=== PATIENT | female | born 1935 | race Caucasian/White ===

== ENCOUNTER 2018-08-07 16:45 | Inpatient (IN) | payer MEDICARE, BC, OTHER ==
[2018-08-07] MEDS ORDERED: Magnesium Sulfate 2 GM IV* 2 GM/50 ML BAG IVPB ONE (16:54)
[2018-08-07] MEDS ORDERED: Albuterol 0.5% CONC NEB.SOL* 5 MG/ML 20 ml BOT INH ONE (16:54)
[2018-08-07] MEDS ORDERED: methylPREDNISolone 125 MG* 2 ML VIAL IV ONE (16:54)
--- NOTE | 2018-08-07 17:04 | ED ---
Shortness of Breath - HPI Summary HPI Summary: A 82 y/o female brought in by ambulance presents to the ED c/o difficulty breathing (SOB). As per triage, "Patient having some difficulty breathing since Sunday. Was seen by provider on sunday. Patient today was having increased difficulty breathing and patient states that her could hear her breathing from across the rm". As per EMS, the patient was diagnosed on Sunday with Bronchitis. She was given and placed on "special amoxicillin". Today, the patient still experienced difficulty breathing, more so today. Additionally, the patient was congested and was wheezing upon arrival. She was given a breathing treatment en route to ED. Patient is still congested and reports no pain. According to the patient, she started getting sick over the weekend and did not feel good. She felt "stuffed up" and could not breathe. She noted that she went to her MD on Sunday (08/05/2018) and was prescribed medicine, however, it did no good. Her breathing never recovered. She stated that she has never experienced trouble with her breathing previously. PMHx of heart issues, A-fib and DM. SHx of former smoker (quit when she was 16 y/o), lives with . Current medications include Eliquis because of A-fib. - History of Current Complaint Time Seen by Provider: 08/07/18 16:48 Hx Obtained From: Patient, EMS Onset/Duration: Sudden Onset, Lasting Days, Still Present, Worse Since Timing: Constant Dyspnea At: Rest Aggrevating Factors: Nothing Alleviating Factors: Nothing Associated Signs & Symptoms: Wheezing - Allergy/Home Medications Allergies/Adverse Reactions: Allergies Allergy/AdvReac Type Severity Reaction Status Date / Time No Known Allergies Allergy Verified 03/21/16 15:50 Home Medications: Home Medications ALPRAZolam TAB* [Xanax TAB*] 0.25 mg PO BEDTIME PRN 08/07/18 [History Confirmed 08/07/18] Amoxicillin/Clavulanate TAB* [Augmentin TAB 875*] 875 mg PO BID 08/07/18 [ History Confirmed 08/07/18] Carvedilol TAB* [Coreg TAB*] 6.25 mg PO BID 08/07/18 [History Confirmed 08/07/18 ] Insulin ASPART (NF) [Novolog (NF)] 8 - 10 units SUBCUT TID AC 08/07/18 [History Confirmed 08/07/18] Insulin GLARGINE(*) [Lantus(*)] 18 units SUBCUT BEDTIME 08/07/18 [History Confirmed 08/07/18] Torsemide TAB* [Demadex*] 10 mg PO DAILY 08/07/18 [History Confirmed 08/07/18] amLODIPine TAB* [Norvasc 5 mg TAB*] 2.5 mg PO DAILY 08/07/18 [History Confirmed 08/07/18] traMADol TAB* [Ultram*] 50 mg PO Q8H PRN 08/07/18 [History Confirmed 08/07/18] PMH/Surg Hx/FS Hx/Imm Hx Endocrine/Hematology History: Reports: Hx Diabetes - H/O FOR 30 YEARS Cardiovascular History: Reports: Hx Atrial Fibrillation, Hx Hypertension, Hx Syncope, Other Cardiovascular Problems/Disorders - AFIB Musculoskeletal History: Reports: Hx Arthritis - ARTHRITIS TO BACK Sensory History: Reports: Hx Contacts or Glasses - READING Opthamlomology History: Reports: Hx Contacts or Glasses - READING - Cancer History Cancer Type, Location and Year: Skin cancer on face Hx Chemotherapy: No Hx Radiation Therapy: No Hx Palliative Cancer Treatment: No - Surgical History Surgery Procedure, Year, and Place: APPENDECTOMY, TUBAL LIGATION Hx Anesthesia Reactions: No - Family History Known Family History: Positive: Cardiac Disease, Hypertension Family History: NON CONTRIBUTORY - Social History Alcohol Use: None Substance Use Type: Reports: None Smoking Status (MU): Never Smoked Tobacco Have You Smoked in the Last Year: No Review of Systems Negative: Fever Positive: Shortness Of Breath, Other - POSITIVE: CONGESTION, WHEEZING All Other Systems Reviewed And Are Negative: Yes Physical Exam - Summary Physical Exam Summary: Appearance: elderly female lying in bed comfortably Skin: vesicular rash extending from right parascapular to around right breast. Consistent with zoster. Eyes: sclera anicteric, no conjunctival pallor ENT: mucous membranes moist, pharynx appears normal Neck: Supple, nontender Respiratory: mild to moderate respiratory distress, dekipnic, few expiratory wheezes without signs of consolidation. Cardiovascular: Normal S1, S2. No murmurs. Normal distal pulses in tibial and radial bilaterally. Abdomen: Soft, nontender, normal active bowel sounds present Musculoskeletal: Normal, Strength/ROM Intact Neurological: A&Ox3, awake and alert, mentation is normal, speech is fluent and appropriate Psychiatric: affect is normal, does not appear anxious or depressed Triage Information Reviewed: Yes Vital Signs Reviewed: Yes Diagnostics - Laboratory Result Diagrams: 08/07/18 17:14 08/07/18 17:14 Lab Statement: Any lab studies that have been ordered have been reviewed, and results considered in the medical decision making process. - Radiology CXR Radiology Interpretation Completed By: ED Physician - Infiltrate of left lower field. Pending official report. - EKG 1700 Cardiac Rate: Other Rate - 116 BPM EKG Rhythm: Atrial Fibrillation Summary of EKG Findings: A-FIB CONSISTENT WITH RVR - 116. ANTERIOR Q-WAVES. NO SIGNIFICANT ACUTE TACHYCARDIC CHANGES. Re-Evaluation - Re-Evaluation First Eval Re-Evaluation Time: 17:50 Change: Improved Comment: BREATHE SOUNDS ARE MUCH BETTER. LESS LABORED AFTER TREATMENT. LEFT CHEST EGOPHONY. Course/Dx - Course Course Of Treatment: A 82 y/o female brought in by ambulance presents to the ED c/o difficulty breathing (SOB). As per EMS, the patient was diagnosed on Sunday with Bronchitis. She was given and placed on "special amoxicillin". Today, the patient still experienced difficulty breathing, more so today. Additionally, the patient was congested and was wheezing upon arrival. She was given a breathing treatment en route to ED. Patient is still congested and reports no pain. According to the patient, she started getting sick over the weekend and did not feel good. She felt "stuffed up" and could not breathe. She noted that she went to her MD on Sunday (08/05/2018) and was prescribed medicine, however, it did no good. Her breathing never recovered. She stated that she has never experienced trouble with her breathing previously. Physical examination revealed mild to moderate respiratory distress, dekipnic, few expiratory wheezes without signs of consolidation. Additionally, vesicular rash extending from right parascapular to around right breast. Consistent with zoster. A CXR revealed infiltrate of left lower field. An EKG revealed an A-fib rate of 116 BPM, A-fib consistent with RVR 116 BPM, anterior Q-waves, no significant acute tachycardic changes. Hematology was done. Labs significant for 12.6 WBC, 131 sodium, 98 chloride, 192 Glucose, and 4.4 Globulin. In the ED course, the patient received Azithromycin, Zovirax, Albuterol, Duoneb, Zithromax, Ceftriaxone, Rocephin, Magnesium Sulfate, and IV fluids. During re-evaluation, the patient breathe sounds are much better and less labored post-treatment. Patient does have left-chest egophony. Patient care was discussed with hospitalist, Dr. Singleton, who accepts patient for admission. Patient will be admitted with a diagnosis of left-sided pneumonia, respiratory distress, and herpes zoster infection of right thorax. Patient is agreeable with this plan. - Diagnoses Provider Diagnoses: Respiratory distress, Pneumonia involving left lung, Herpes zoster infection of thoracic region - Physician Notifications Discussed Care of Patient With: Grady Singleton Time Discussed With Above Provider: 18:15 Instructed by Provider To: Other - ACCEPTS PATIENT FOR ADMISSION. Discharge - Sign-Out/Discharge Documenting (check all that apply): Patient Departure - ADMIT, Sign-Out Patient - FLORENCIO Signing out patient TO: Grady Singleton Receiving patient FROM: Honorio Vargas - Discharge Plan Condition: Stable Disposition: ADMITTED TO [facility] Referrals: Mega Taveras MD [Primary Care Provider] - - Billing Disposition and Condition Condition: STABLE Disposition: Admitted to [facility] - Attestation Statements Document Initiated by Jose Rafael: Yes Documenting Carlyibjose: Keshawn Corbett Provider For Whom Jose Rafael is Documenting (Include Credential): Honorio Vargas MD Scribjose Attestation: Keshawn You, scribed for Honorio Vargas MD on 08/07/18 at 1957. Scribe Documentation Reviewed: Yes Provider Attestation: The documentation as recorded by the Keshawn cerna accurately reflects the service I personally performed and the decisions made by , Honorio Vargas MD Status of Scribe Document: Viewed
[2018-08-07] MEDS ORDERED: Albuterol/Ipratropium NEB.SOL* Albuterol 2.5 MG/Ipratropium 0.5 MG 3 ML INH ONE ×2 (17:12→17:56)
[2018-08-07] MEDS ORDERED: Acyclovir* 400 MG TAB PO ONE (17:52)
[2018-08-07 18:04] LABS: EGFR Non-African American 63.7 (>60)
[2018-08-07] MEDS ORDERED: Azithromycin IV(*) 500 MG in NS 0.9% 250 ML* 250 ML IVPB ONE (18:13)
[2018-08-07] MEDS ORDERED: cefTRIAXone(*) 1 GM in NS 0.9% 50 ML* 50 ML IVPB ONE (18:13)
[2018-08-07 18:17] LABS: Hematocrit 39 % (35-47); Hemoglobin 13.4 g/dl (12.0-16.0); Mean Corpuscular Hemoglobin 29 pg (27-31); Mean Corpuscular Volume 86 fL (80-97); Red Blood Count 4.55 10^6/ul (4.00-5.40); White Blood Count 12.6 10^3/ul (3.5-10.8)
[2018-08-07 18:18] LABS: ABS Basophils 0 10^3/ul (0-0.2); ABS Eosinophils 0 10^3/ul (0-0.6); ABS Lymphocytes 1.2 10^3/ul (1.0-4.8); ABS Monocytes 4.3 10^3/ul (0-0.8); ABS Neutrophils 7.1 10^3/ul (1.5-7.7); ABS Nucleated RBC 0 10^3/ul; Eosinophil % 0 %; Lymphocyte % 9.8 %; Mean Corpuscular HGB Conc 34 g/dl (31-36); Mean Platelet Volume 8.3 fL (7.4-10.4); Nucleated Red Blood Cells % 0; Platelet Count 160 10^3/ul (150-450); Red Cell Distribution Width 15 % (10.5-15)
[2018-08-07] MEDS ORDERED: cefTRIAXone(*) 1 GM ADVAN/BAG ONE (18:30)
[2018-08-07] MEDS ORDERED: Azithromycin IV* 500 MG ADVAN VIAL/BAG IVPB ONE (18:30)
[2018-08-07] MEDS ORDERED: Dextrose 50% Syringe 50 ML* 25 GM/50 ML SYRINGE IV PUSH PRN (20:02)
[2018-08-07] MEDS ORDERED: Albuterol 2.5 MG/3 ML NEB.SOL* (0.083%) INH PRN (20:02)
[2018-08-07] MEDS ORDERED: NS 0.9% 1000 ML* 1,000 ML IV SCH ×2 (20:15→20:19)
[2018-08-07] MEDS ORDERED: Insulin GLARGINE(*) 1 UNITS UNIT SUBCUT SCH (21:00)
[2018-08-07] MEDS: amLODIPine TAB* 5 MG PO SCH (21:11)
[2018-08-07] MEDS: Carvedilol TAB* 6.25 MG PO SCH (21:11)
[2018-08-07] MEDS: Albuterol/Ipratropium NEB.SOL* Albuterol 2.5 MG/Ipratropium 0.5 MG 3 ML INH SCH (23:12)
[2018-08-07] MEDS: predniSONE TAB* 20 MG PO SCH (23:55)
[2018-08-07] MEDS: Apixaban* 5 MG TAB PO SCH (23:56)
[2018-08-07] MEDS: ALPRAZolam TAB* 0.25 MG PO PRN (23:56)
[2018-08-08] MEDS: ValACYclovir (*) 1 GM TAB PO SCH ×4 (00:01→20:24)
[2018-08-08] MEDS: Albuterol/Ipratropium NEB.SOL* Albuterol 2.5 MG/Ipratropium 0.5 MG 3 ML INH SCH ×2 (02:51→07:30)
[2018-08-08] MEDS: Mometasone/Formoter 200/5 MDI INH SCH ×3 (02:51→20:49)
[2018-08-08] MEDS: hydrALAZINE IV* 20 MG/ML VIAL IV SLOW PU PRN (03:53)
--- NOTE | 2018-08-08 04:29 | HP ---
CC: Dr. Taveras * HISTORY AND PHYSICAL: DATE OF ADMISSION: 08/07/18 PRIMARY CARE PROVIDER: Dr. Taveras. ATTENDING PHYSICIAN WHILE IN THE HOSPITAL: Dr. Sarah Rodriguez *(report dictated by Grady Singleton NP). CHIEF COMPLAINT: 1. Cough. 2. Shortness of breath. HISTORY OF PRESENTING ILLNESS: Ms. Luis is an 82-year-old female patient; she has a history of AFib, diabetes, GERD, hyperlipidemia, hypertension, and chronic pain. She comes into the ED today stating that she has noticed she has been having progressive worsening shortness of breath associated with a cough. No chills or fever but she started out since last week with a cough, not feeling. No sick contacts that she is aware of. She said that she had progressive shortness of breath throughout the weekend, saw her primary on Sunday. She was started on antibiotics, she is not sure of what it was. Despite taking the antibiotic, it was Augmentin, she just was not feeling any better. She was concerned today because she was more short of breath. The was concerned as she was having wheezing audibly and she was short of breath with minimal exertion, so she came into the ED. She was evaluated and because of the worsening shortness of breath and the fact that it appeared on x- ray she had pneumonia, we were asked to evaluate for admission. She denies any chest pain. She denies having any abdominal pain. She denies having any diarrhea or vomiting. PAST MEDICAL HISTORY: Significant for: 1. AFib. 2. Diabetes. 3. GERD. 4. Hyperlipidemia. 5. Hypertension. 6. Chronic pain. PAST SURGICAL HISTORY: 1. She has had a left hip ORIF. 2. Appendectomy. 3. Tubal ligation. HOME MEDICATIONS: Include: 1. Tramadol 50 mg every 8 hours as needed. 2. NovoLog sliding scale t.i.d. before meals. 3. Demadex 10 mg daily. 4. Pravachol 20 mg daily. 5. Prilosec 20 mg daily. 6. Lantus 18 units subcu at bedtime. 7. Apixaban 5 mg p.o. b.i.d. 8. Norvasc 2.5 mg daily. 9. Coreg 6.25 mg p.o. b.i.d. 10. Augmentin 875 mg p.o. b.i.d. 11. Xanax 0.25 mg at bedtime as needed. ALLERGIES TO MEDICATIONS: Include no known drug allergies. FAMILY HISTORY: Both her parents had cancer. SOCIAL HISTORY: She does not smoke and does not drink. Surrogate decision maker is her . REVIEW OF SYSTEMS: There is no documented fever. She denied having any significant weight change. There was ear discharge. She denied having any rhinorrhea. There was no sore throat. There is a cough. There is dyspnea on exertion. There was no abdominal pain. There was no nausea, no vomiting. No dysuria, no frequency. There was no seizure, no loss of consciousness. No pruritus and no skin ulcerations. Review of 14 systems completed, all others were negative. PHYSICAL EXAMINATION GENERAL: At this time, Ms. Luis is an 82-year-old female patient; she is sitting in the ED stretcher. She does not appear to be in any acute distress. She appears to be well-nourished and well-developed. VITAL SIGNS: Her last blood pressure was actually 157/110, her pulse was noted to be 110, O2 sat was 99%, temperature 99.0. HEENT: Head atraumatic, normocephalic. Eyes: EOMs are intact. Sclerae were anicteric and not pale. Throat: Oral mucosa appears to be dry. No oropharyngeal erythema. NECK: Supple. LUNGS: She had wheezing bilaterally in the upper lobes expiratory. In addition of this, she had crackles in the left lower base. She had equal diaphragmatic expansion. HEART: Sounds S1, S2. She had an irregularly irregular rate. No murmurs, rubs , or gallops. ABDOMEN: Soft, flat, nontender. Bowel sounds were present. EXTREMITIES: Pulses were 2+ throughout. She is moving all 4 extremities with 5 /5 strength. NEUROLOGICAL: She is awake, alert, and oriented x3. Speech clear. Tongue midline. Community Manager were equal. No gross focal deficits. SKIN: She does have a rash noted on the right dermatome in the thoracic area, which does appear to be blistering and vesicles. LABORATORY DATA/DIAGNOSTIC STUDIES: WBC 12.6, RBC of 4.55, hemoglobin of 13.4 , hematocrit of 39, and a platelet count of 160. Sodium 131, potassium 4.3, chloride of 98, bicarb 25, BUN 21, creatinine 0.85, glucose 192, lactate 1.2, calcium 9.1. Total bili 0.7, AST 14, ALT 7, alk phos 55. Troponin 0.01. Influenza was negative. Chest x-ray obtained today. When I reviewed it, I do appreciate an infiltrate which appears to be in the left lower lobe, cardiomegaly appears to be present, right lung appears to be clear. EKG shows atrial fibrillation, rate of 116, no ST elevations or T-wave inversions. Previous EKG is similar with the exception of the rate is faster today, it is more tachycardic. She had an echo 2 years ago, EF of 40% to 45%. ASSESSMENT AND PLAN: Ms. Luis is an 82-year-old female patient; she presents today with complaints of shortness of breath, cough, chills, not feeling well, and on evaluation found to have what appears to be pneumonia. She will be admitted under inpatient status for: 1. Pneumonia. At this point, we will get blood cultures. We will get Legionella antigen, Streptococcus pneumoniae antigen, sputum cultures. We will continue nebulizers every 4 hours of p.r.n. albuterol and I have ordered steroids and will continue with antibiotic therapy and will continue to follow. 2. Rash. I presume that this appears to be shingles. The plan at this point, we will place her on valacyclovir 1000 mg p.o. t.i.d. and we will continue to follow. 3. Atrial fibrillation. Her rate is in the one teens but I suspect this is being driven by the underlying infection. I will hydrate. We will give her beta-fely tonight and we will follow. 4. Diabetes. We will place her on lispro sliding scale. 5. Gastroesophageal reflux disease. Continue medications as prescribed. 6. Hyperlipidemia. Continue her medications as prescribed. 7. Hypertension. Continue medications as prescribed. I do not have the blood pressure done here, it has been elevated. I have ordered p.r.n. hydralazine. 8. Chronic pain. Continue her p.r.n. tramadol. 9. DVT prophylaxis. She is on Eliquis. 10. Code status. DNR. 11. Fluids, electrolytes, nutrition. She can have consistent carb diet. TIME SPENT: On the admission was 60 minutes; greater than half the time was spent [id number] with the patient obtaining my history and physical, other half the time was spent going over the plan of care with the patient and implementing plan of care. I did discuss the plan of care with my attending, Dr. Rodriguez; she is in agreement. [id number]/[facility] #: [id number] MTDD
[2018-08-08 05:50] LABS: Hematocrit 38 % (35-47); Hemoglobin 12.8 g/dl (12.0-16.0); Mean Corpuscular HGB Conc 34 g/dl (31-36); Mean Corpuscular Hemoglobin 29 pg (27-31); Mean Corpuscular Volume 86 fL (80-97); Mean Platelet Volume 8.7 fL (7.4-10.4); Platelet Count 155 10^3/ul (150-450); Red Cell Distribution Width 16 % (10.5-15); White Blood Count 10.3 10^3/ul (3.5-10.8)
[2018-08-08 06:03] LABS: EGFR Non-African American 55.4 (>60)
[2018-08-08 06:08] LABS: ABS Basophils 0 10^3/ul (0-0.2); ABS Eosinophils 0 10^3/ul (0-0.6); ABS Lymphocytes 1.1 10^3/ul (1.0-4.8); ABS Monocytes 0.6 10^3/ul (0-0.8); ABS Neutrophils 8.6 10^3/ul (1.5-7.7); ABS Nucleated RBC 0 10^3/ul; Eosinophil % 0 %; Lymphocyte % 10.4 %; Nucleated Red Blood Cells % 0.1
[2018-08-08] MEDS: Insulin LISPRO* 1 UNITS UNIT SUBCUT SCH ×3 (09:37→17:11)
[2018-08-08] MEDS: predniSONE TAB* 20 MG PO SCH (09:38)
[2018-08-08] MEDS: amLODIPine TAB* 5 MG PO SCH (09:38)
[2018-08-08] MEDS: Omeprazole CAP* 20 MG PO SCH (09:39)
[2018-08-08] MEDS: CMC:Pravastatin (NF) 20 MG TAB PO SCH (09:39)
[2018-08-08] MEDS: Apixaban* 5 MG TAB PO SCH ×2 (09:39→20:24)
[2018-08-08] MEDS: Carvedilol TAB* 6.25 MG PO SCH ×2 (09:40→20:24)
[2018-08-08] MEDS: traMADol TAB* 50 MG PO PRN ×2 (10:49→20:23)
[2018-08-08] MEDS ORDERED: Furosemide IV* 10 MG/ML 2 ML VIAL (20 MG) IV ONE (12:06)
[2018-08-08] MEDS ORDERED: Albuterol/Ipratropium NEB.SOL* Albuterol 2.5 MG/Ipratropium 0.5 MG 3 ML INH SCH (13:00)
[2018-08-08] MEDS ORDERED: Albuterol/Ipratropium NEB.SOL* Albuterol 2.5 MG/Ipratropium 0.5 MG 3 ML INH PRN (13:08)
[2018-08-08] MEDS: cefTRIAXone(*) 1 GM in NS 0.9% 50 ML* 50 ML IVPB SCH (17:11)
[2018-08-08] MEDS: Azithromycin IV(*) 500 MG in NS 0.9% 250 ML* 250 ML IVPB SCH (18:06)
--- NOTE | 2018-08-08 19:26 | PN ---
Subjective Date of Service: 08/08/18 Interval History: Patient seen today, doing better. ambulating. Eating well. no fever overnight. Family History: Unchanged from Admission Social History: Unchanged from Admission Past Medical History: Unchanged from Admission Objective Active Medications: Acetaminophen (Tylenol Tab*) 650 mg PO Q4H PRN PRN Reason: FEVER/PAIN Albuterol (Ventolin 2.5 Mg/3 Ml Neb.Lisa*) 2.5 mg INH Q2H PRN PRN Reason: SOB/WHEEZING Albuterol/Ipratropium (Duoneb (Albuterol 2.5 Mg/Ipratropium 0.5 Mg)) 1 neb INH [id number] AWAKE PRN PRN Reason: SOB/WHEEZING Alprazolam (Xanax Tab*) 0.25 mg PO BEDTIME PRN PRN Reason: ANXIETY Last Admin: 08/07/18 23:56 Dose: 0.25 mg Amlodipine Besylate (Norvasc Tab*) 2.5 mg PO DAILY [facility] Last Admin: 08/08/18 09:38 Dose: 2.5 mg Apixaban (Eliquis*) 5 mg PO BID [facility] Last Admin: 08/08/18 09:39 Dose: 5 mg Carvedilol (Coreg Tab*) 6.25 mg PO BID [facility] Last Admin: 08/08/18 09:40 Dose: 6.25 mg Dextrose (D50w Syringe 50 Ml*) 12.5 gm IV PUSH .FOR FS < 60 - SS PRN PRN Reason: FS < 60 Hydralazine HCl (Apresoline Iv*) 5 mg IV SLOW PU Q6H PRN PRN Reason: BLOOD PRESSURE Last Admin: 08/08/18 03:53 Dose: 5 mg Ceftriaxone Sodium 1 gm/ (Sodium Chloride) 50 mls @ 200 mls/hr IVPB Q24H [facility] Last Admin: 08/08/18 17:11 Dose: 200 mls/hr Azithromycin 500 mg/ Sodium (Chloride) 250 mls @ 250 mls/hr IVPB Q24H [facility] Last Admin: 08/08/18 18:06 Dose: 250 mls/hr Insulin Glargine (Lantus(*)) 18 units SUBCUT BEDTIME [facility] Last Admin: 08/07/18 23:56 Dose: 18 units Insulin Human Lispro (Humalog*) 0 units SUBCUT AC [facility]; Protocol Last Admin: 08/08/18 17:11 Dose: 3 units Mometasone Furoate/Formoterol Fumar (Dulera 200/5 Mdi*) 2 puff INH BID [facility] Last Admin: 08/08/18 07:30 Dose: 2 puff Omeprazole (Prilosec Cap*) 20 mg PO DAILY@0730 [facility] Last Admin: 08/08/18 09:39 Dose: 20 mg Pravastatin Sodium (Pravachol (Nf)) 20 mg PO DAILY [facility]; Protocol Last Admin: 08/08/18 09:39 Dose: 20 mg Prednisone (Deltasone Tab*) 40 mg PO DAILY [facility] Last Admin: 08/08/18 09:38 Dose: 40 mg Tramadol HCl (Ultram*) 50 mg PO Q8H PRN PRN Reason: PAIN Last Admin: 08/08/18 10:49 Dose: 50 mg Valacyclovir HCl (Valtrex 1 Gm(*)) 1 gm PO TID [facility]; Protocol Last Admin: 08/08/18 15:15 Dose: 1 gm Vital Signs - 8 hr 08/08/18 08/08/18 12:25 12:45 Temperature 97.2 F Pulse Rate 83 Respiratory 17 18 Rate Blood Pressure 145/69 (mmHg) Oxygen Devices in Use Now: Nasal Cannula Appearance: awake, alert Eyes: No Scleral Icterus, PERRLA Ears/Nose/Mouth/Throat: NL Teeth, Lips, Gums, Clear Oropharnyx Neck: NL Appearance and Movements; NL JVP, Trachea Midline Respiratory: Symmetrical Chest Expansion and Respiratory Effort Cardiovascular: NL Sounds; No Murmurs; No JVD, - - irregularly irregular Extremities: No Edema Neurological: Alert and Oriented x 3 Result Diagrams: 08/08/18 05:19 08/08/18 05:19 Microbiology and Other Data: Microbiology 08/07/18 19:05 Aerobic Blood Culture - Preliminary Blood Venous No Growth Day 1 Anaerobic Blood Culture - Preliminary No Growth Day 1 08/07/18 17:14 Aerobic Blood Culture - Preliminary Blood Venous No Growth Day 1 Anaerobic Blood Culture - Preliminary No Growth Day 1 08/08/18 16:15 Legionella Urinary Antigen - Final Urine Negative Legionella Antigen Streptococcus pneumoniae Ag Screen - Final Negative S. pneumo Antigen 08/07/18 19:31 Influenza Types A,B Antigen - Final Nasal Specimen received for Influenza A/B Molecular testing Assess/Plan/Problems-Billing Assessment: 82 y/o female admitted for LLL - Patient Problems (1) Pneumonia Current Visit: Yes Status: Acute Code(s): J18.9 - PNEUMONIA, UNSPECIFIED ORGANISM SNOMED Code(s): 571817479 Comment: continue rocephin, zithromax. D/c Pred (2) Atrial fibrillation Current Visit: No Status: Acute Code(s): I48.91 - UNSPECIFIED ATRIAL FIBRILLATION SNOMED Code(s): 74597239 (3) HTN (hypertension) Current Visit: No Status: Acute Code(s): I10 - ESSENTIAL (PRIMARY) HYPERTENSION SNOMED Code(s): 47078427 (4) Diabetes Current Visit: No Status: Chronic Code(s): E11.9 - TYPE 2 DIABETES MELLITUS WITHOUT COMPLICATIONS SNOMED Code(s): 62653251 Comment: increase lantus to 24 units due to hyperglycemia steroid induced
[2018-08-08] MEDS: Insulin GLARGINE(*) 1 UNITS UNIT SUBCUT SCH (20:24)
[2018-08-08] MEDS: ALPRAZolam TAB* 0.25 MG PO PRN (23:41)
[2018-08-08] MEDS: Acetaminophen TAB* 325 MG PO PRN (23:41)
[2018-08-09] MEDS: traMADol TAB* 50 MG PO PRN ×2 (06:23→16:59)
[2018-08-09 06:51] LABS: Hematocrit 38 % (35-47); Hemoglobin 12.9 g/dl (12.0-16.0); Mean Corpuscular HGB Conc 34 g/dl (31-36); Mean Corpuscular Hemoglobin 29 pg (27-31); Mean Corpuscular Volume 86 fL (80-97); Mean Platelet Volume 8.8 fL (7.4-10.4); Platelet Count 137 10^3/ul (150-450); Red Blood Count 4.37 10^6/ul (4.00-5.40); Red Cell Distribution Width 15 % (10.5-15); White Blood Count 13.7 10^3/ul (3.5-10.8)
[2018-08-09 07:07] LABS: EGFR Non-African American 54.1 (>60)
[2018-08-09 07:40] LABS: Monocytes % 11 %
[2018-08-09] MEDS: Mometasone/Formoter 200/5 MDI INH SCH (08:19)
[2018-08-09] MEDS: Torsemide TAB* 20 MG PO SCH (09:00)
[2018-08-09] MEDS: ValACYclovir (*) 1 GM TAB PO SCH ×3 (09:01→19:47)
[2018-08-09] MEDS: Omeprazole CAP* 20 MG PO SCH (09:01)
[2018-08-09] MEDS: Apixaban* 5 MG TAB PO SCH ×2 (09:01→19:47)
[2018-08-09] MEDS: CMC:Pravastatin (NF) 20 MG TAB PO SCH (09:01)
[2018-08-09] MEDS: amLODIPine TAB* 5 MG PO SCH (09:02)
[2018-08-09] MEDS: Carvedilol TAB* 6.25 MG PO SCH (09:02)
[2018-08-09] MEDS: Insulin LISPRO* 1 UNITS UNIT SUBCUT SCH ×3 (09:03→17:55)
--- NOTE | 2018-08-09 11:53 | ECHO ---
Patient: SIL MCLAIN I [facility] Rec#: [id number] : 1935 Date: 08/09/2018 Age: 82y Height: 167.64 cm / 66.0 in Weight: 92.99 kg / 204.9 lbs Sex: F BSA: 2.02 Room#: 437 Admit Date#: 08/07/2018 Type: Inpatient Referring: Eber Grant MD Reading: Kennedy Arzate MD Motor Vehicle Technician: Teressa Angel RDCS CC: Tomasz Shaikh CC: Mega Taveras MD Transthoracic Echocardiogram Indication: CHF BP: 173/54 HR: 72 Rhythm: A-Fib Findings History: A-fib,DM,HTN,obesity,HLD. Technical Comments: The study is technically limited due to patient body habitus. Completed at 1115. Left Ventricle: The left ventricular chamber size is normal. The estimated ejection fraction is 50-55%. The assessment of diastolic function is non-diagnostic. Left Atrium: The left atrium is severely dilated. Right Ventricle: The right ventricular cavity size is normal. The right ventricular global systolic function is normal. Right Atrium: The right atrium is moderate to severely dilated. Aortic Valve: The aortic valve is trileaflet. There is no evidence of aortic valve thickening. There is trace to mild aortic regurgitation. There is no evidence of aortic stenosis. Mitral Valve: The mitral valve leaflets are mildly thickened. There is mild to moderate mitral regurgitation. There is no evidence of mitral stenosis. Tricuspid Valve: There is moderate tricuspid regurgitation. The tricuspid regurgitant jet is directed toward the septum. There is evidence of mild to moderate pulmonary hypertension. There is no tricuspid stenosis. Pulmonic Valve: The pulmonic valve appears normal. There is trace to mild pulmonic regurgitation. There is no pulmonic stenosis. Pericardium: A pericardial fat pad is visualized. Aorta: There is no dilatation of the ascending aorta. There is no dilatation of the aortic arch. There is no dilation of the aortic root. Pulmonary Artery: The main pulmonary artery appears normal. Venous: The venous system is not well visualized. Summary: There are changes noted when compared to the previous study done on 07/31/2016, now there is interval LV EF improvement from 40-45% then. MR is more now. TR and PHTN are new. Conclusions The estimated ejection fraction is 50-55%. The assessment of diastolic function is non-diagnostic. The left atrium is severely dilated. The right atrium is moderate to severely dilated. There is trace to mild aortic regurgitation. There is mild to moderate mitral regurgitation. There is moderate tricuspid regurgitation. There is evidence of mild to moderate pulmonary hypertension. There is trace to mild pulmonic regurgitation. There are changes noted when compared to the previous study done on 07/31/2016, now there is interval LV EF improvement from 40-45% then. MR is more now. TR and PHTN are new. Measurements Name Value Normal Range RVIDd (AP) 2D 3 cm (0.9 - 2.6) RVDdMajor (2D) 3.2 cm (2.2 - 4.4) RAd ISD 4CH 6.1 cm (3.4 - 4.9) RA (A4C)W 4.7 cm (2.9 - 4.6) IVSd (2D) 1.1 cm (0.6 - 1) LVPWd (2D) 1.2 cm (0.6 - 1) LVIDd (2D) 4.2 cm (3.6 - 5.4) LVIDs (2D) 3.2 cm - LV FS (2D) 24 % (25 - 45) Aortic Annulus 1.8 cm (1.4 - 2.6) Ao root diameter (2D) 2.6 cm (2.1 - 3.5) Ascending Ao 3.1 cm (2.1 - 3.4) Aortic arch 2.2 cm (1.8 - 3.4) Descending Ao 0.5 cm - LA dimension (AP) 2D 4.3 cm (2.3 - 3.8) LAd ISD 4CH 6.3 cm (2.9 - 5.3) LA ISD 4CH W 4.8 cm (2.5 - 4.5) Name Value Normal Range LA ESV SP 4CH (A/L) 83 ml - LA ESV SP 2CH (A/L) 61 ml - LA ESV BP (A/L) 80 ml - LA ESV BP (A/L) index 39.38 ml/m2 - LA ESV SP 4CH (MOD) 74 ml - LA ESV SP 2CH (MOD) 56 ml - Name Value Normal Range MV E-wave Vmax 1 m/sec - MV deceleration time 197 msec - MV E:A ratio 201.65 ratio - LV septal e' Vmax 0.09 m/sec - LV lateral e' Vmax 0.07 m/sec - LV E:e' septal ratio 14.28 ratio - LV E:e' lateral ratio 14.28 ratio - Name Value Normal Range AV Vmax 1.2 m/sec - AV VTI 27.3 cm - AV peak gradient 6.23 mmHg - AV mean gradient 3.26 mmHg - LVOT Vmax 0.6 m/sec - LVOT VTI 13.6 cm - LVOT peak gradient 1.54 mmHg - LVOT mean gradient 0.78 mmHg - AR PHT 271 msec - AR peak gradient 13.45 mmHg - Name Value Normal Range MR Vmax 4.2 m/sec - MR VTI 161 cm - Name Value Normal Range TR Vmax 2.9 m/sec - TR peak gradient 34 mmHg - RAP 8 mmHg - RVSP 42 mmHg - Name Value Normal Range PV Vmax 0.7 m/sec - PV peak gradient 1.77 mmHg -
--- NOTE | 2018-08-09 15:48 | PN ---
Subjective Date of Service: 08/09/18 Interval History: Patient seen today, doing well. Still mild dyspneic but ambulating. She did have periodic intermittent sinus pause 3 secs, and bradycardia rate of mid 30' s. Patient was asleep and noted to have brief episode of apnea. I did go to see the patient, easily aroused. no symptoms. Rate improved to 70's. Denies any chest pain. Afebrile. Remains on O2 saturation 99% Social History: Unchanged from Admission Past Medical History: Unchanged from Admission Objective Active Medications: Acetaminophen (Tylenol Tab*) 650 mg PO Q4H PRN PRN Reason: FEVER/PAIN Last Admin: 08/08/18 23:41 Dose: 650 mg Albuterol (Ventolin 2.5 Mg/3 Ml Neb.Lisa*) 2.5 mg INH Q2H PRN PRN Reason: SOB/WHEEZING Albuterol/Ipratropium (Duoneb (Albuterol 2.5 Mg/Ipratropium 0.5 Mg)) 1 neb INH [id number] AWAKE PRN PRN Reason: SOB/WHEEZING Alprazolam (Xanax Tab*) 0.25 mg PO BEDTIME PRN PRN Reason: ANXIETY Last Admin: 08/08/18 23:41 Dose: 0.25 mg Amlodipine Besylate (Norvasc Tab*) 2.5 mg PO DAILY [facility] Last Admin: 08/09/18 09:02 Dose: 2.5 mg Apixaban (Eliquis*) 5 mg PO BID [facility] Last Admin: 08/09/18 09:01 Dose: 5 mg Azithromycin (Zithromax Tab*) 250 mg PO DAILY [facility] Carvedilol (Coreg Tab*) 3.125 mg PO BID [facility] Dextrose (D50w Syringe 50 Ml*) 12.5 gm IV PUSH .FOR FS < 60 - SS PRN PRN Reason: FS < 60 Hydralazine HCl (Apresoline Iv*) 5 mg IV SLOW PU Q6H PRN PRN Reason: BLOOD PRESSURE Last Admin: 08/08/18 03:53 Dose: 5 mg Ceftriaxone Sodium 1 gm/ (Sodium Chloride) 50 mls @ 200 mls/hr IVPB Q24H [facility] Last Admin: 08/08/18 17:11 Dose: 200 mls/hr Azithromycin 500 mg/ Sodium (Chloride) 250 mls @ 250 mls/hr IVPB Q24H [facility] Stop: 08/09/18 23:59 Last Admin: 08/08/18 18:06 Dose: 250 mls/hr Insulin Glargine (Lantus(*)) 24 units SUBCUT BEDTIME [facility] Last Admin: 08/08/18 20:24 Dose: 24 units Insulin Human Lispro (Humalog*) 0 units SUBCUT AC [facility]; Protocol Last Admin: 08/09/18 13:04 Dose: 12 units Mometasone Furoate/Formoterol Fumar (Dulera 200/5 Mdi*) 2 puff INH BID [facility] Last Admin: 08/09/18 08:19 Dose: 2 puff Omeprazole (Prilosec Cap*) 20 mg PO DAILY@0730 [facility] Last Admin: 08/09/18 09:01 Dose: 20 mg Pravastatin Sodium (Pravachol (Nf)) 20 mg PO DAILY [facility]; Protocol Last Admin: 08/09/18 09:01 Dose: 20 mg Torsemide (Demadex*) 10 mg PO DAILY [facility] Last Admin: 08/09/18 09:00 Dose: 10 mg Tramadol HCl (Ultram*) 50 mg PO Q8H PRN PRN Reason: PAIN Last Admin: 08/09/18 06:23 Dose: 50 mg Valacyclovir HCl (Valtrex 1 Gm(*)) 1 gm PO TID [facility]; Protocol Last Admin: 08/09/18 13:04 Dose: 1 gm Vital Signs - 8 hr 08/09/1818 08/09/18 09:19 09:30 11:39 Temperature 98.6 F 97.0 F Pulse Rate 73 94 Respiratory 20 17 16 Rate Blood Pressure 154/83 134/80 (mmHg) O2 Sat by Pulse 99 99 Oximetry Oxygen Devices in Use Now: Nasal Cannula Appearance: awake, alert. no distress Eyes: No Scleral Icterus, PERRLA, - - EOMI Ears/Nose/Mouth/Throat: NL Teeth, Lips, Gums, Mucous Membranes Moist Neck: NL Appearance and Movements; NL JVP, Trachea Midline Respiratory: Symmetrical Chest Expansion and Respiratory Effort, - - expiratory wheezing Cardiovascular: NL Sounds; No Murmurs; No JVD, - - +1 edema Abdominal: NL Sounds; No Tenderness; No Distention Extremities: - - + 1 edema Neurological: Alert and Oriented x 3 Result Diagrams: 08/09/18 05:48 08/09/18 05:48 Microbiology and Other Data: Microbiology 08/07/18 19:05 Aerobic Blood Culture - Preliminary Blood Venous No Growth Day 1 Anaerobic Blood Culture - Preliminary No Growth Day 1 08/07/18 17:14 Aerobic Blood Culture - Preliminary Blood Venous No Growth Day 1 Anaerobic Blood Culture - Preliminary No Growth Day 1 08/08/18 16:15 Legionella Urinary Antigen - Final Urine Negative Legionella Antigen Streptococcus pneumoniae Ag Screen - Final Negative S. pneumo Antigen 08/07/18 19:31 Influenza Types A,B Antigen - Final Nasal Specimen received for Influenza A/B Molecular testing Assess/Plan/Problems-Billing Assessment: 82 y/o female admitted for LLL, with known history of Afib, CHF - Patient Problems (1) Pneumonia Current Visit: Yes Status: Acute Code(s): J18.9 - PNEUMONIA, UNSPECIFIED ORGANISM SNOMED Code(s): 355063168 Comment: - continue rocephin, zithromax day # 2 - Off D/c Pred (2) Atrial fibrillation Current Visit: No Status: Acute Code(s): I48.91 - UNSPECIFIED ATRIAL FIBRILLATION SNOMED Code(s): 07829541 Comment: - On eliquis - Will decrease carvedilol due to bradycardia and intermittent sinus pauses (3) HTN (hypertension) Current Visit: No Status: Acute Code(s): I10 - ESSENTIAL (PRIMARY) HYPERTENSION SNOMED Code(s): 90352789 Comment: continue carvediolol and amlodipine (4) Diabetes Current Visit: No Status: Chronic Code(s): E11.9 - TYPE 2 DIABETES MELLITUS WITHOUT COMPLICATIONS SNOMED Code(s): 93535460 Comment: s/p increase in lantus to 24 units due to hyperglycemia steroid induced. now off steroid will observe to rule out hypoglycemia (5) DVT prophylaxis Current Visit: No Status: Acute Code(s): ADU6623 - SNOMED Code(s): 877686195 Comment: On Eliquis
[2018-08-09] MEDS: cefTRIAXone(*) 1 GM in NS 0.9% 50 ML* 50 ML IVPB SCH (16:59)
[2018-08-09] MEDS: Azithromycin IV(*) 500 MG in NS 0.9% 250 ML* 250 ML IVPB SCH (18:32)
[2018-08-09] MEDS: Acetaminophen TAB* 325 MG PO PRN (19:47)
[2018-08-09] MEDS ORDERED: Magnesium Hydroxide LIQ* 30 ML UDC PO PRN (19:59)
[2018-08-09] MEDS: Polyethylene Glycol 3350* 17 GM PACKET PO SCH (20:18)
[2018-08-09] MEDS: Docusate CAP* 100 MG PO SCH (20:18)
[2018-08-09] MEDS: Insulin GLARGINE(*) 1 UNITS UNIT SUBCUT SCH (20:20)
[2018-08-09] MEDS: Senna TAB PO SCH (20:23)
[2018-08-10] MEDS: Acetaminophen TAB* 325 MG PO PRN ×2 (00:27→09:11)
[2018-08-10 05:44] LABS: Hematocrit 38 % (35-47); Hemoglobin 12.8 g/dl (12.0-16.0); Mean Corpuscular HGB Conc 34 g/dl (31-36); Mean Corpuscular Hemoglobin 29 pg (27-31); Mean Corpuscular Volume 87 fL (80-97); Mean Platelet Volume 8.3 fL (7.4-10.4); Platelet Count 149 10^3/ul (150-450); Red Blood Count 4.38 10^6/ul (4.00-5.40); Red Cell Distribution Width 16 % (10.5-15); White Blood Count 12.2 10^3/ul (3.5-10.8)
[2018-08-10 05:48] LABS: ABS Basophils 0 10^3/ul (0-0.2); ABS Eosinophils 0 10^3/ul (0-0.6); ABS Lymphocytes 1.1 10^3/ul (1.0-4.8); ABS Monocytes 4.4 10^3/ul (0-0.8); ABS Neutrophils 6.6 10^3/ul (1.5-7.7); ABS Nucleated RBC 0 10^3/ul; Eosinophil % 0.1 %; Lymphocyte % 9.3 %; Nucleated Red Blood Cells % 0
[2018-08-10 05:58] LABS: EGFR Non-African American 53.4 (>60)
[2018-08-10] MEDS: Mometasone/Formoter 200/5 MDI INH SCH ×3 (06:50→20:27)
[2018-08-10] MEDS: Omeprazole CAP* 20 MG PO SCH (07:41)
[2018-08-10] MEDS: Insulin LISPRO* 1 UNITS UNIT SUBCUT SCH ×3 (08:15→17:15)
[2018-08-10] MEDS: Azithromycin TAB* 250 MG PO SCH (09:09)
[2018-08-10] MEDS: ValACYclovir (*) 1 GM TAB PO SCH ×3 (09:09→20:47)
[2018-08-10] MEDS: Apixaban* 5 MG TAB PO SCH ×2 (09:10→20:45)
[2018-08-10] MEDS: amLODIPine TAB* 5 MG PO SCH (09:10)
[2018-08-10] MEDS: Carvedilol TAB* 3.125 MG PO SCH ×2 (09:10→20:45)
[2018-08-10] MEDS: CMC:Pravastatin (NF) 20 MG TAB PO SCH (09:10)
[2018-08-10] MEDS: Torsemide TAB* 20 MG PO SCH (09:11)
[2018-08-10] MEDS: traMADol TAB* 50 MG PO PRN (09:12)
[2018-08-10] MEDS: Docusate CAP* 100 MG PO SCH ×2 (09:13→20:45)
[2018-08-10] MEDS: Polyethylene Glycol 3350* 17 GM PACKET PO SCH (09:13)
[2018-08-10] MEDS ORDERED: Magnesium Sulfate 1 GM IV* 1 GM/100 ML BAG IV ONE (09:53)
--- NOTE | 2018-08-10 12:18 | PN ---
Subjective Date of Service: 08/10/18 Interval History: Patient seen doing better today. No chest pain, ambulating. Doing well. Yesterday she did have few episode of sinus pauses longest was 5.4 secs. assymptomatic, occured while sleeping. Also she did have intermitted bradycardia with pulse rate of 37 (lowest). Carvedilol last night was held, and this morning her pulse in the mid 90's. I did resume her carvedilol at half strength. I did discuss with her telephone sales agent group Dr. Hess covering for Dr. Porter and he is in agreement. Also, I did notice yesterday that she does have period of apnea during those bradycardic episode. I will order nocturnal oximetry tonight and will order for oximetry at rest and while ambulation to see if she qualifies for home O2 Social History: Unchanged from Admission Past Medical History: Unchanged from Admission Objective Active Medications: Acetaminophen (Tylenol Tab*) 650 mg PO Q4H PRN PRN Reason: FEVER/PAIN Last Admin: 08/10/18 09:11 Dose: 650 mg Albuterol (Ventolin 2.5 Mg/3 Ml Neb.Lisa*) 2.5 mg INH Q2H PRN PRN Reason: SOB/WHEEZING Albuterol/Ipratropium (Duoneb (Albuterol 2.5 Mg/Ipratropium 0.5 Mg)) 1 neb INH [id number] AWAKE PRN PRN Reason: SOB/WHEEZING Alprazolam (Xanax Tab*) 0.25 mg PO BEDTIME PRN PRN Reason: ANXIETY Last Admin: 08/08/18 23:41 Dose: 0.25 mg Amlodipine Besylate (Norvasc Tab*) 2.5 mg PO DAILY [facility] Last Admin: 08/10/18 09:10 Dose: 2.5 mg Apixaban (Eliquis*) 5 mg PO BID [facility] Last Admin: 08/10/18 09:10 Dose: 5 mg Azithromycin (Zithromax Tab*) 250 mg PO DAILY [facility] Last Admin: 08/10/18 09:09 Dose: 250 mg Carvedilol (Coreg Tab*) 3.125 mg PO BID [facility] Last Admin: 08/10/18 09:10 Dose: 3.125 mg Dextrose (D50w Syringe 50 Ml*) 12.5 gm IV PUSH .FOR FS < 60 - SS PRN PRN Reason: FS < 60 Docusate Sodium (Colace Cap*) 100 mg PO BID [facility] Last Admin: 08/10/18 09:13 Dose: Not Given Hydralazine HCl (Apresoline Iv*) 5 mg IV SLOW PU Q6H PRN PRN Reason: BLOOD PRESSURE Last Admin: 08/08/18 03:53 Dose: 5 mg Ceftriaxone Sodium 1 gm/ (Sodium Chloride) 50 mls @ 200 mls/hr IVPB Q24H [facility] Last Admin: 08/09/18 16:59 Dose: 200 mls/hr Insulin Glargine (Lantus(*)) 24 units SUBCUT BEDTIME [facility] Last Admin: 08/09/18 20:20 Dose: 24 units Insulin Human Lispro (Humalog*) 0 units SUBCUT AC [facility]; Protocol Last Admin: 08/10/18 08:15 Dose: Not Given Magnesium Hydroxide (Milk Of Magnesia Liq*) 30 ml PO Q6H PRN PRN Reason: CONSTIPATION Magnesium Oxide (Magox 400 Tab*) 400 mg PO BID [facility] Mometasone Furoate/Formoterol Fumar (Dulera 200/5 Mdi*) 2 puff INH BID [facility] Last Admin: 08/10/18 07:38 Dose: 2 puff Omeprazole (Prilosec Cap*) 20 mg PO DAILY@0730 [facility] Last Admin: 08/10/18 07:41 Dose: 20 mg Polyethylene Glycol/Electrolytes (Miralax*) 17 gm PO DAILY [facility] Last Admin: 08/10/18 09:13 Dose: Not Given Pravastatin Sodium (Pravachol (Nf)) 20 mg PO DAILY [facility]; Protocol Last Admin: 08/10/18 09:10 Dose: 20 mg Senna (Senokot Tab*) 2 tab PO BEDTIME [facility] Last Admin: 08/09/18 20:23 Dose: 2 tab Torsemide (Demadex*) 10 mg PO DAILY [facility] Last Admin: 08/10/18 09:11 Dose: 10 mg Tramadol HCl (Ultram*) 50 mg PO Q8H PRN PRN Reason: PAIN Last Admin: 08/10/18 09:12 Dose: 50 mg Valacyclovir HCl (Valtrex 1 Gm(*)) 1 gm PO TID [facility]; Protocol Last Admin: 08/10/18 09:09 Dose: 1 gm Vital Signs - 8 hr 08/10/18 08/10/18 08/10/18 05:16 07:40 07:42 Temperature 97.3 F Pulse Rate 81 84 Respiratory 18 20 Rate Blood Pressure 157/75 (mmHg) O2 Sat by Pulse 99 Oximetry 08/10/18 08/10/18 08:27 09:12 Temperature 97.3 F Pulse Rate 87 Respiratory 20 20 Rate Blood Pressure 169/81 (mmHg) O2 Sat by Pulse 99 Oximetry Oxygen Devices in Use Now: Nasal Cannula Appearance: awake, alert. express doing better. no acute distress Eyes: No Scleral Icterus, - - EOMI Ears/Nose/Mouth/Throat: NL Teeth, Lips, Gums, Mucous Membranes Moist Neck: NL Appearance and Movements; NL JVP, Trachea Midline Respiratory: - - diminished BS at basesw Cardiovascular: NL Sounds; No Murmurs; No JVD, - - irregularly irregular Abdominal: NL Sounds; No Tenderness; No Distention, - Extremities: - - + 1 edema Skin: No Rash or Ulcers Neurological: Alert and Oriented x 3, NL Muscle Strength and Tone Result Diagrams: 08/10/18 05:11 08/10/18 05:11 Microbiology and Other Data: Microbiology 08/07/18 19:05 Aerobic Blood Culture - Preliminary Blood Venous No Growth Day 1 Anaerobic Blood Culture - Preliminary No Growth Day 1 08/07/18 17:14 Aerobic Blood Culture - Preliminary Blood Venous No Growth Day 1 Anaerobic Blood Culture - Preliminary No Growth Day 1 08/08/18 16:15 Legionella Urinary Antigen - Final Urine Negative Legionella Antigen Streptococcus pneumoniae Ag Screen - Final Negative S. pneumo Antigen 08/07/18 19:31 Influenza Types A,B Antigen - Final Nasal Specimen received for Influenza A/B Molecular testing Assess/Plan/Problems-Billing Assessment: 82 y/o female admitted for LLL, with known history of Afib, CHF - Patient Problems (1) Pneumonia Current Visit: Yes Status: Acute Code(s): J18.9 - PNEUMONIA, UNSPECIFIED ORGANISM SNOMED Code(s): 588346613 Comment: - LLL pneumonaie. CXR from today reveals improvement of her LLL infiltrates - Continue rocephin, zithromax day # 3 - Off D/c Pred (2) Atrial fibrillation Current Visit: No Status: Acute Code(s): I48.91 - UNSPECIFIED ATRIAL FIBRILLATION SNOMED Code(s): 85634337 Comment: - On eliquis - Will decrease carvedilol to 3.125 mg bid due to bradycardia and intermittent sinus pauses - Discussed with Dr. Hess covering for Dr. Potrer. Agree with the above. I do recommend outpatient evaluation for CHAPARRO. I will order nocturnal oximetry at night and will assess if she does require O2 at home (3) HTN (hypertension) Current Visit: No Status: Acute Code(s): I10 - ESSENTIAL (PRIMARY) HYPERTENSION SNOMED Code(s): 44525493 Comment: continue carvediolol and amlodipine (4) Diabetes Current Visit: No Status: Chronic Code(s): E11.9 - TYPE 2 DIABETES MELLITUS WITHOUT COMPLICATIONS SNOMED Code(s): 65071290 Comment: s/p increase in lantus to 24 units due to hyperglycemia steroid induced. now off steroid will observe to rule out hypoglycemia (5) DVT prophylaxis Current Visit: No Status: Acute Code(s): KJV4496 - SNOMED Code(s): 567366388 Comment: On Eliquis
[2018-08-10] MEDS: cefTRIAXone(*) 1 GM in NS 0.9% 50 ML* 50 ML IVPB SCH (17:14)
[2018-08-10] MEDS: Senna TAB PO SCH (20:44)
[2018-08-10] MEDS: Magnesium Oxide TAB* 400 MG PO SCH (20:45)
[2018-08-10] MEDS: Insulin GLARGINE(*) 1 UNITS UNIT SUBCUT SCH (20:46)
[2018-08-11] MEDS: hydrALAZINE IV* 20 MG/ML VIAL IV SLOW PU PRN (00:39)
[2018-08-11] MEDS ORDERED: amLODIPine TAB* 5 MG PO ONE (01:45)
[2018-08-11 05:50] LABS: Hematocrit 40 % (35-47); Hemoglobin 13.5 g/dl (12.0-16.0); Mean Corpuscular HGB Conc 33 g/dl (31-36); Mean Corpuscular Hemoglobin 29 pg (27-31); Mean Corpuscular Volume 86 fL (80-97); Mean Platelet Volume 8.5 fL (7.4-10.4); Platelet Count 143 10^3/ul (150-450); Red Blood Count 4.67 10^6/ul (4.00-5.40); Red Cell Distribution Width 15 % (10.5-15); White Blood Count 8.9 10^3/ul (3.5-10.8)
[2018-08-11 06:15] LABS: EGFR Non-African American 67.4 (>60)
[2018-08-11 06:22] LABS: Monocytes % 37 %
[2018-08-11 06:24] LABS: ABS Basophils 0 10^3/ul (0-0.2); ABS Eosinophils 0 10^3/ul (0-0.6); ABS Lymphocytes 1.8 10^3/ul (1.0-4.8); ABS Monocytes 4.5 10^3/ul (0-0.8); ABS Neutrophils 2.7 10^3/ul (1.5-7.7); ABS Nucleated RBC 0 10^3/ul
[2018-08-11] MEDS: Polyethylene Glycol 3350* 17 GM PACKET PO SCH (07:17)
[2018-08-11] MEDS: Docusate CAP* 100 MG PO SCH (07:18)
[2018-08-11] MEDS: Insulin LISPRO* 1 UNITS UNIT SUBCUT SCH ×2 (07:29→12:09)
[2018-08-11] MEDS: CMC:Pravastatin (NF) 20 MG TAB PO SCH (07:29)
[2018-08-11] MEDS: Torsemide TAB* 20 MG PO SCH (07:29)
[2018-08-11] MEDS: Azithromycin TAB* 250 MG PO SCH (07:29)
[2018-08-11] MEDS: Omeprazole CAP* 20 MG PO SCH (07:29)
[2018-08-11] MEDS: ValACYclovir (*) 1 GM TAB PO SCH ×2 (07:29→13:26)
[2018-08-11] MEDS: Magnesium Oxide TAB* 400 MG PO SCH (07:30)
[2018-08-11] MEDS: Apixaban* 5 MG TAB PO SCH (07:30)
[2018-08-11] MEDS: Carvedilol TAB* 3.125 MG PO SCH (07:30)
[2018-08-11] MEDS: Mometasone/Formoter 200/5 MDI INH SCH (07:58)
[2018-08-11] MEDS ORDERED: amLODIPine TAB* 5 MG PO SCH (09:00)
[2018-08-11] MEDS ORDERED: Magnesium Sulfate 2 GM IV* 2 GM/50 ML BAG IVPB ONE (09:54)
--- NOTE | 2018-08-11 09:56 | PN ---
Subjective Date of Service: 08/11/18 Interval History: Patient seen she was noted to be tachycardic this morning and corrolate with bowel movement and when she sleeps she goes into bradycardia and short sinus pause. otherwise her ambulatory oxygen requirement was normal she did not drop below 92%, and nocturnal oximetry did not reveal desaturation below 88% Social History: Unchanged from Admission Past Medical History: Unchanged from Admission Objective Active Medications: Acetaminophen (Tylenol Tab*) 650 mg PO Q4H PRN PRN Reason: FEVER/PAIN Last Admin: 08/10/18 09:11 Dose: 650 mg Albuterol (Ventolin 2.5 Mg/3 Ml Neb.Lisa*) 2.5 mg INH Q2H PRN PRN Reason: SOB/WHEEZING Albuterol/Ipratropium (Duoneb (Albuterol 2.5 Mg/Ipratropium 0.5 Mg)) 1 neb INH [id number] AWAKE PRN PRN Reason: SOB/WHEEZING Alprazolam (Xanax Tab*) 0.25 mg PO BEDTIME PRN PRN Reason: ANXIETY Last Admin: 08/08/18 23:41 Dose: 0.25 mg Amlodipine Besylate (Norvasc Tab*) 5 mg PO DAILY [facility] Last Admin: 08/11/18 07:29 Dose: 5 mg Apixaban (Eliquis*) 5 mg PO BID [facility] Last Admin: 08/11/18 07:30 Dose: 5 mg Azithromycin (Zithromax Tab*) 250 mg PO DAILY [facility] Last Admin: 08/11/18 07:29 Dose: 250 mg Carvedilol (Coreg Tab*) 3.125 mg PO BID [facility] Last Admin: 08/11/18 07:30 Dose: 3.125 mg Dextrose (D50w Syringe 50 Ml*) 12.5 gm IV PUSH .FOR FS < 60 - SS PRN PRN Reason: FS < 60 Docusate Sodium (Colace Cap*) 100 mg PO BID [facility] Last Admin: 08/11/18 07:18 Dose: Not Given Hydralazine HCl (Apresoline Iv*) 5 mg IV SLOW PU Q6H PRN PRN Reason: BLOOD PRESSURE Last Admin: 08/11/18 00:39 Dose: 5 mg Ceftriaxone Sodium 1 gm/ (Sodium Chloride) 50 mls @ 200 mls/hr IVPB Q24H [facility] Last Admin: 12/08/18 17:14 Dose: 200 mls/hr Insulin Glargine (Lantus(*)) 24 units SUBCUT BEDTIME [facility] Last Admin: 08/10/18 20:46 Dose: 24 units Insulin Human Lispro (Humalog*) 0 units SUBCUT AC [facility]; Protocol Last Admin: 08/11/18 07:29 Dose: Not Given Magnesium Hydroxide (Milk Of Magnesia Liq*) 30 ml PO Q6H PRN PRN Reason: CONSTIPATION Magnesium Oxide (Magox 400 Tab*) 400 mg PO BID [facility] Last Admin: 08/11/18 07:30 Dose: 400 mg Mometasone Furoate/Formoterol Fumar (Dulera 200/5 Mdi*) 2 puff INH BID [facility] Last Admin: 08/11/18 07:58 Dose: 2 puff Omeprazole (Prilosec Cap*) 20 mg PO DAILY@0730 [facility] Last Admin: 08/11/18 07:29 Dose: 20 mg Polyethylene Glycol/Electrolytes (Miralax*) 17 gm PO DAILY [facility] Last Admin: 08/11/18 07:17 Dose: Not Given Pravastatin Sodium (Pravachol (Nf)) 20 mg PO DAILY [facility]; Protocol Last Admin: 08/11/18 07:29 Dose: 20 mg Senna (Senokot Tab*) 2 tab PO BEDTIME [facility] Last Admin: 08/10/18 20:44 Dose: 2 tab Torsemide (Demadex*) 10 mg PO DAILY [facility] Last Admin: 08/11/18 07:29 Dose: 10 mg Tramadol HCl (Ultram*) 50 mg PO Q8H PRN PRN Reason: PAIN Last Admin: 08/10/18 09:12 Dose: 50 mg Valacyclovir HCl (Valtrex 1 Gm(*)) 1 gm PO TID [facility]; Protocol Last Admin: 08/11/18 07:29 Dose: 1 gm Vital Signs - 8 hr 08/11/18 08/11/18 08/11/18 03:20 07:27 08:00 Temperature 97.9 F Pulse Rate 104 Respiratory 18 20 16 Rate Blood Pressure 188/91 (mmHg) O2 Sat by Pulse 94 Oximetry 08/11/18 08:25 Temperature 98.3 F Pulse Rate 64 Respiratory 23 Rate Blood Pressure 157/69 (mmHg) O2 Sat by Pulse 97 Oximetry Oxygen Devices in Use Now: None Appearance: Awake, alert Eyes: No Scleral Icterus, PERRLA, - - EOMI Ears/Nose/Mouth/Throat: NL Teeth, Lips, Gums, Clear Oropharnyx Neck: NL Appearance and Movements; NL JVP Respiratory: Symmetrical Chest Expansion and Respiratory Effort, - - expiratory scaterred wheezing, Cardiovascular: NL Sounds; No Murmurs; No JVD, - - + 1 edmea; Tacchycardic and irregular Abdominal: NL Sounds; No Tenderness; No Distention Extremities: - - +1 edema Skin: - - Right flank herpetic lesion Result Diagrams: 08/11/18 05:21 08/11/18 05:21 Microbiology and Other Data: Microbiology 08/07/18 19:05 Aerobic Blood Culture - Preliminary Blood Venous No Growth Day 1 Anaerobic Blood Culture - Preliminary No Growth Day 1 08/07/18 17:14 Aerobic Blood Culture - Preliminary Blood Venous No Growth Day 1 Anaerobic Blood Culture - Preliminary No Growth Day 1 08/08/18 16:15 Legionella Urinary Antigen - Final Urine Negative Legionella Antigen Streptococcus pneumoniae Ag Screen - Final Negative S. pneumo Antigen 08/07/18 19:31 Influenza Types A,B Antigen - Final Nasal Specimen received for Influenza A/B Molecular testing Assess/Plan/Problems-Billing Assessment: 82 y/o female admitted for LLL, with known history of Afib, CHF and acute shingles Right flank area - Patient Problems (1) Pneumonia Current Visit: Yes Status: Acute Code(s): J18.9 - PNEUMONIA, UNSPECIFIED ORGANISM SNOMED Code(s): 860264911 Comment: - LLL pneumonaie. CXR from today reveals improvement of her LLL infiltrates - Continue rocephin, zithromax day # 4 - Off D/c Pred (2) Atrial fibrillation Current Visit: No Status: Acute Code(s): I48.91 - UNSPECIFIED ATRIAL FIBRILLATION SNOMED Code(s): 63941315 Comment: - On eliquis - Will decrease carvedilol to 3.125 mg bid due to bradycardia and intermittent sinus pauses - Discussed with Dr. Hess covering for Dr. Porter. Agree with the above. I do recommend outpatient evaluation for CHAPARRO. - Nocturnal oximetry was normal with desat below 88% was only 16 seconds; and exertional oximetry did not drop below 92%! Hence she did not qualify for home O2 unfortunately (3) HTN (hypertension) Current Visit: No Status: Acute Code(s): I10 - ESSENTIAL (PRIMARY) HYPERTENSION SNOMED Code(s): 69725413 Comment: continue carvediolol, but dose decrease to 3.125 bid from 6.25 bid due to bradycardia and sinus pause longest 5.4 seconds, and bradycardia of 37 bpm; and amlodipine (4) Diabetes Current Visit: No Status: Chronic Code(s): E11.9 - TYPE 2 DIABETES MELLITUS WITHOUT COMPLICATIONS SNOMED Code(s): 63338458 Comment: - s/p increase in lantus to 24 units due to hyperglycemia steroid induced. now off steroid will observe to rule out hypoglycemia (5) DVT prophylaxis Current Visit: No Status: Acute Code(s): JOM9262 - SNOMED Code(s): 801735957 Comment: On Doris
[2018-08-11] MEDS ORDERED: Potassium Chlor TAB* 20 MEQ TAB.ER PO SCH (10:00)
[2018-08-11 13:39] VITALS: BP 150/65
--- NOTE | 2018-08-13 10:33 | DS ---
DISCHARGE SUMMARY: DATE OF ADMISSION: 08/07/18 DATE OF DISCHARGE: 08/11/18 FINAL DISCHARGE DIAGNOSES: 1. Left lower lobe pneumonia. 2. Atrial fibrillation with rapid ventricular rate and some flutter waves paroxysmally. 3. Active shingles right flank area. 4. Hypertension. 5. Diabetes mellitus. HOSPITAL COURSE: The patient admitted to [facility] on 08/07/18 for increased shortness o f breath and cough and she was evaluated in the emergency room and she was found to have low grade fe siri of 99 with tachycardia, pulse of 110 and her chest x-ray shows left lower lobe infiltrate. She w as admitted, started on Rocephin and azithromycin. At the same time, she did have rash in the flank area, which has not been diagnosed. She was diagnosed with shingles for which I concurred on my eval uation the following day and I concurred with her treatment of valacyclovir. The patient throughout the hospital course, she did respond to her treatment, but not as rapid as expected. She did have ep isodic flare-up of her atrial fibrillation. At times she was found to be bradycardic down to 37 with several episodes of sinus pause as long as 5.4 to 6 seconds and majority of those occurred while she was asleep and when the patient is up and walking to the bathroom, her heart rate goes to the 130s. She was maintained on tele throughout the hospital course. She was maintained on her IV antibiotic and she was resumed back on her home medication and her IV fluid was discontinued and she was resumed on torsemide. On 08/11/18, the patient was eager to go despite occasionally throughout the day she had some paroxysmal rapid AFib that settled with rest. I was attempting to convince her to remain as I will titrate her AFib medication; however, she was eager to go as she wants to be with her . Therefore, I discharged the patient with reservation to return to the emergency room immediately i f she decompensates or her respiratory status decompensates. DISCHARGE IMPRESSION AND PLAN: For her pneumonia left lower lobe, she completed her Zithromax orally for at least 4 days. Therefore, she will be given azithromycin for 1 more day and will transition h er ceftriaxone to Vantin 200 b.i.d. as outlined in her discharge medications below. For her atrial fibrillation, it should be noted that throughout the hospital course she did develop s ome bradycardia with a pulse of 37 and occasional sinus pause as long as 5.4 seconds. I did discuss with Dr. Hess covering for Dr. Shaikh given her carvedilol was lowered to 3.125 b.i.d. due to her bradycardia and frequent sinus pause and I will defer that further titration to her machining associate, Dr. Shaikh. I did attempt to obtain nocturnal oximetry, but she did not qualify as she did not have any hypoxia less than 88% more than 5 minutes. She only had them for 16 seconds and with exertion, h er oximetry did not drop below 92%, hence she was not qualified for O2. For hypertension, I continued her amlodipine, but her carvedilol was decreased to 3.125 b.i.d. from 6 .25 b.i.d. as mentioned previously due to bradycardia and sinus pause at 5.4 seconds. For her shingles, the patient was told to continue her valacyclovir. DISCHARGE MEDICATIONS: 1. Azithromycin 250 mg daily for 2 more days. 2. Carvedilol 3.25 b.i.d. 3. Vantin 200 mg twice a day for 1 more week, total 14 days. 4. Magnesium oxide 400 mg twice a day. 5. Potassium chloride 20 mEq daily. 6. Valacyclovir 1 g 3 times a day. The patient to continue her prescribed medications as per home: 1. Pravastatin 20 mg daily. 2. Omeprazole 20 daily. 3. Eliquis 5 b.i.d. 4. Tramadol 50 every 8 hours as needed. 5. Insulin as per home regimen. 6. Torsemide 10 mg daily. 7. Xanax 0.25 at bedtime. The patient was notified that her carvedilol was decreased to 3.125 and to stop her amoxicillin. DISCHARGE INSTRUCTIONS: The patient to follow up with her machining associate, Dr. Tomasz Shaikh in 4 to 7 days. The patient to follow up with her primary, Dr. Mega Taveras in 4 to 7 days. [id number]/[facility] #: [id number]
== END 2018-08-11 15:30 | disposition home or self-care (01) | DRG 195 ==
LOC: ED 16:45 → MEDTELE 19:56
PROVIDERS: ADMIT Pediatrics; ATTEND Internal Medicine
DX: J18.9 Pneumonia, unspecified organism (principal); B02.9 Zoster without complications; I48.91 Unspecified atrial fibrillation; E11.65 Type 2 diabetes mellitus with hyperglycemia; K21.9 Gastro-esophageal reflux disease without esophagitis; E78.5 Hyperlipidemia, unspecified; I10 Essential (primary) hypertension; G89.29 Other chronic pain; Z66 Do not resuscitate; I27.20 Pulmonary hypertension, unspecified; I08.1 Rheumatic disorders of both mitral and tricuspid valves; R06.81 Apnea, not elsewhere classified; Z96.642 Presence of left artificial hip joint; Z79.4 Long term (current) use of insulin; Z79.899 Other long term (current) drug therapy; Z80.9 Family history of malignant neoplasm, unspecified
CPT/HCPCS: 36415; 71046; 80048; 80053; 83036; 83605; 83735; 84100; 84484; 85025; 85060; 87040; 87899; 93005; 93306; 94640; 94762; 99284; A9270-GY; J0360; J0456; J0696; J1940; J2930; J3475; J7512